=== PATIENT | female | born 1990 | race Caucasian/White ===

== ENCOUNTER 2017-10-23 22:16 | Observation (INO) ==
[2017-10-24] MEDS ORDERED: *HR* Promethazine 25 MG/ML VIAL IVP PRN (00:06)
[2017-10-24] MEDS ORDERED: *HR* LORazepam 2 MG/ML VIAL IVP PRN (00:09)
[2017-10-24] MEDS ORDERED: GI Cocktail 40 ML EACH PO ONE (00:10)
--- NOTE | 2017-10-24 00:20 | Internal Med History&Physical ---
Date of Encounter: 10/23/17 Time of Encounter: 23:58 Internal Medicine - H&P: HPI Chief complaint: vomiting Admitted From: Home Plans for Post Hospital Care: Home History of present illness: Tere Zimmer is a 27 year old woman with a history of alcoholism who presented to [facility] with the complaint of nausea and vomiting for about 3 days. She reported dark brown emesis which later became blood-streaked today. She reported vomiting "all day" today and as such that she has not been able to hold down anything. She started to feel weak and dizzy with standing such that she could pass out. She denied chest pain but felt like her heart was just beating hard and fast. She denied any ill exposures, foodborne illness concerns , recent antibiotic or travel. She has been having epigastric aching and burning pain that will radiate up to her throat. She denies any back or flank pain. She denies any episodes like this before. She has not been having diarrhea, constipation or bloody or black stools. She states she does drink about one fifth (750ml) of vodka a day for the last 2 years and she has not been able to drink any alcohol today due to the vomiting but she had been drinking yesterday. In the ER she was notably tachycardic and found hypokalemic. Potassium supplementation was started and IV PPI in addition to fluid resuscitation and transferred here for further care. At this time she is notably calm and has no complaints, wishing to have ice chips. Past Med Surg Social Fam HX - Past Medical History Medical history: other (Alcoholism) Psychiatric history: no psych history, depression (on venlafaxine) - Past Surgical History Surgical History: no surgical history - Social History Smoking Status: Never smoker Smokeless Tobacco Status: No Alcohol use: heavy, recent Drug use: none Internal Medicine - H&P: Meds Venlafaxine [Effexor] 25 mg PO DAILY 03/07/16 [History] 3 Allergy/AdvReac Type Severity Reaction Status Date / Time azithromycin [From Zithromax] AdvReac Swelling Verified 10/23/17 19:25 of Lip/Tongue/Throat Penicillins AdvReac Swelling Verified 10/23/17 19:25 of Lip/Tongue/Throat All Systems PM: A 10-system review of systems was performed and is negative for pertinent findings except as documented above in the HPI. - Constitutional Exam: Vitals: Reviewed General: Well-developed and in no acute distress lying comfortably in bed Skin: Warm and supple HEENT: Moist mucous membranes. No conjunctivae pallor. Neck: No lymphadenopathy. No JVD. No carotid bruits. No palpable thyroid. Chest: Normal thoracic expansion. Normal breath sounds. Clear to auscultation. Heart: Normal S1 & S2; rhythmic. No rubs or murmurs. Abdomen: Non-distended, soft and minimally to palpation in the epigastrium. No peritoneal reaction. Liver is normal in size. Spleen is not palpable. Extremities: No clubbing, cyanosis or edema. No calf tenderness. Normal distal pulses. Neurological: Awake, alert and oriented to person, place and time. No focal deficits. Psych: Affect appropriate. - Assessment and plan (1) UGIB (upper gastrointestinal bleed) Current Visit: Yes Status: Acute Assessment and plan: likely secondary to Yudi-rosario tear from incessant vomiting. Thus far no recurrences. May also have a component of erosive gastritis from alcohol. Will continue PPI and monitor. So far Hgb stable. If there are recurrences, she may benefit from GI evaluation. For now she remains stable. (2) Nausea & vomiting Current Visit: Yes Status: Acute Assessment and plan: Not associated with diarrhea and not suggestive of a gastroenteritis. May be related to alcohol use and going into withdrawal. -Will place on aspiration precautions and administer anti-emetics prn. -Clear liquid diet for now to advance as tolerated. Qualifiers: Vomiting type: cyclical vomiting Vomiting Intractability: intractable Qualified Code(s): G43.A1 - Cyclical vomiting, intractable (3) Alcohol withdrawal Current Visit: Yes Status: Acute Assessment and plan: Patient admits to withdrawal episodes in the past and currently feels shaky. CIWA protocol. Benzos prn. Banana bag received. Will start PO vitamins/mineral tomorrow if tolerated. Clear liquid diet. Seizure/fall/aspiration precautions. Qualifiers: Complication of substance-induced condition: uncomplicated Qualified Code(s ): F10.230 - Alcohol dependence with withdrawal, uncomplicated (4) Hypokalemia Current Visit: Yes Status: Acute Assessment and plan: Due to alcoholism. Will supplement accordingly and give Mg as well (5) Hypochloremic alkalosis Current Visit: Yes Status: Acute Assessment and plan: likely due to upper GI losses. Will recheck with IVF (6) Leukocytosis Current Visit: Yes Status: Acute Assessment and plan: likely secondary to hemoconcentration noting the high Hgb as well from fluid losses. Currently no signs of lee infection. Will recheck with fluid resuscitation. Qualifiers: Leukocytosis type: unspecified Qualified Code(s): D72.829 - Elevated white blood cell count, unspecified (7) Abnormal LFTs Current Visit: Yes Status: Acute Assessment and plan: Seen to have AST>ALT ratio typical of alcoholic liver disease. Should be improve with alcohol cessation. Give her vices, will check viral hepatitis profile as well. (8) Depression Current Visit: Yes Status: Chronic Assessment and plan: Will continue daily venlafaxine Qualifiers: Depression Type: unspecified Qualified Code(s): F32.9 - Major depressive disorder, single episode, unspecified (9) DVT prophylaxis Current Visit: Yes Status: Acute Assessment and plan: SubQ heparin indicated. - Time Spent With Patient Total time spent is greater than 50% in coordination of care (as documented) at patient's floor/unit and/or counseling patient: Greater than 35 minutes
[2017-10-24] MEDS: D5% in Lactated Ringers 1,000 ML IVC SCH ×2 (02:45→10:29)
[2017-10-24] MEDS: Pantoprazole 40 MG VIAL IVP SCH ×2 (05:20→17:17)
[2017-10-24 05:33] LABS: Basophils # 0.1 K/mcL (0.0-0.2); Basophils % 0.7 %; Eosinophils % 0.2 %; Hemoglobin 12.1 g/dL (11.5-15.4); Immature Granulocytes % 0.6 % (0-4); Lymphocytes # 2.5 K/mcL (0.6-4.6); Lymphocytes % 22.3 %; Mean Corpuscular HGB Conc 33.6 g/dL (31.6-35.5); Mean Corpuscular Hemoglobin 32.1 pg (28.0-33.3); Mean Corpuscular Volume 95.5 fL (83.0-100.0); Mean Platelet Volume 9.4 fL (9.4-12.4); Monocytes # 1.2 K/mcL (0.0-1.3); Monocytes % 11.2 %; Neutrophils # 7.1 K/mcL (1.6-8.9); Platelet Count 254 K/mcL (140-400); Red Blood Count 3.77 M/mcL (3.82-4.97); Red Cell Distribution Width 13.8 % (11.5-14.5)
[2017-10-24 05:54] LABS: Alanine Aminotransferase 99 Units/L (7-52); Albumin 3.8 g/dL (3.5-5.7); Albumin/Globulin Ratio 1.8 (1.1-2.2); Alkaline Phosphatase 86 Units/L (34-104); Aspartate Amino Transferase 160 Units/L (13-39); BUN/Creatinine Ratio 9 (6-26); Bilirubin,Direct 0.3 mg/dL (0.0-0.2); Bilirubin,Indirect 0.6 mg/dL (0.0-1.2); Bilirubin,Total 0.9 mg/dL (0.3-1.0); Blood Urea Nitrogen 7 mg/dL (6-20); Calcium 8.6 mg/dL (8.6-10.3); Carbon Dioxide 27 mEq/L (23-29); Chloride 103 mEq/L (98-107); Globulin 2.1 g/dL (2.4-3.5); Glucose 137 mg/dL (70-105); Magnesium 2.3 mg/dL (1.6-2.6); Osmolality,Calculated 290 (280-300); Phosphorous 2.4 mg/dL (2.7-4.5); Potassium 3.3 mEq/L (3.5-5.1); Sodium 140 mEq/L (136-145); Total Protein 5.9 g/dL (6.4-8.9); eGFR For Non-African Americans > 60 (> 60)
[2017-10-24] MEDS: *HR* Heparin 5,000 UNIT/ML VIAL SQ SCH ×3 (06:12→21:36)
[2017-10-24 06:58] LABS: Hepatitis B Surface Antigen Nonreactive (Nonreactive)
[2017-10-24] MEDS: Folic Acid 1 MG TABLET PO SCH (08:35)
[2017-10-24] MEDS: Vitamin B Complex/Vit C/Vit E 1 EACH TABLET PO SCH (08:36)
[2017-10-24] MEDS: Thiamine (B-1) 100 MG TABLET PO SCH (08:36)
[2017-10-24] MEDS: Potassium Chloride Elixir 20 MEQ/15 ML UDC PO SCH ×2 (08:36→21:36)
--- NOTE | 2017-10-24 09:19 | Internal Med Progress Note ---
Hospitalist Progress Note - Encounter Date of Encounter: 10/24/17 Time of Encounter: 11:00 - Subjective Interval History: Patient denies any hematemesis and is tearful this morning on exam but denies SI - Exam Vitals: Temp Pulse Resp BP Pulse Ox 98.2 F 83 18 129/76 96 10/24/17 07:53 10/24/17 07:53 10/24/17 07:53 10/24/17 07:53 10/24/17 07:53 Exam: Gen.: Nonacute distress, alert and oriented 3 ENT: Mucosal membranes moist Respiratory: Lungs are clear to auscultation bilaterally without any wheezing rhonchi or rales Cardiovascular: Normal S1 and S2 regular rate rhythm no murmurs rubs or gallops Abdomen: Soft, nontender and nondistended with positive bowel sounds Extremities: No lower extremity edema Skin: Normal color Psychiatry: Patient admits to depression but denies SI - Assessment and Plan (1) UGIB (upper gastrointestinal bleed) Current Visit: Yes Status: Acute Assessment and Plan: Patient denies any hematemesis Discussed with GI; continue to monitor EGD plan for 10/26/17 (2) Hypokalemia Current Visit: Yes Status: Acute Assessment and Plan: Replacements as needed (3) Nausea & vomiting Current Visit: Yes Status: Acute Assessment and Plan: Continue anti-emetics prn. (4) Alcohol withdrawal Current Visit: Yes Status: Acute Assessment and Plan: CIWA protocol (5) Abnormal LFTs Current Visit: Yes Status: Acute Assessment and Plan: Seen to have AST>ALT ratio typical of alcoholic liver disease. Continue to monitor; hepatitis panel pending (6) Depression Current Visit: Yes Status: Chronic Assessment and Plan: Will continue daily venlafaxine (7) DVT prophylaxis Current Visit: Yes Status: Acute Assessment and Plan: SubQ heparin indicated. - Time Spent with Patient Total time spent is greater than 50% in coordination of care (as documented) at patient's floor/unit and/or counseling patient: Internal Medicine: Result - Labs CBC & Chem 7: 10/24/17 05:07 10/24/17 05:07 Labs: Short CBC 10/24/17 Range/Units 05:07 WBC 11.0 (4.3-11.1) K/mcL Hgb 12.1 D (11.5-15.4) g/dL Hct 36.0 (35.3-44.9) % Plt Count 254 (140-400) K/mcL Neutrophils # 7.1 (1.6-8.9) K/mcL BMP 10/24/17 05:07 Sodium 140 Potassium 3.3 L Chloride 103 Carbon Dioxide 27 BUN 7 Creatinine 0.76 Glucose 137 H Calcium 8.6 Liver Function 10/24/17 Range/Units 05:07 Total Bilirubin 0.9 (0.3-1.0) mg/dL Direct Bilirubin 0.3 H (0.0-0.2) mg/dL AST 160 H (13-39) Units/L ALT 99 H (7-52) Units/L Alkaline Phosphatase 86 (34-104) Units/L Albumin 3.8 (3.5-5.7) g/dL Consult Discharge Plan - Plan Referrals: Petr Smallwood MD [Primary Care Provider] - (3) Nausea & vomiting Qualifiers: Vomiting type: cyclical vomiting Vomiting Intractability: intractable Qualified Code(s): G43.A1 - Cyclical vomiting, intractable (4) Alcohol withdrawal Qualifiers: Complication of substance-induced condition: uncomplicated Qualified Code(s) : F10.230 - Alcohol dependence with withdrawal, uncomplicated (6) Depression Qualifiers: Depression Type: unspecified Qualified Code(s): F32.9 - Major depressive disorder, single episode, unspecified
[2017-10-24] MEDS ORDERED: Melatonin 3 MG TABLET PO PRN (15:35)
[2017-10-25] MEDS: *HR* Heparin 5,000 UNIT/ML VIAL SQ SCH ×3 (05:41→21:55)
[2017-10-25] MEDS: Pantoprazole 40 MG VIAL IVP SCH ×2 (05:41→17:44)
[2017-10-25] MEDS: Folic Acid 1 MG TABLET PO SCH (08:31)
[2017-10-25] MEDS: Vitamin B Complex/Vit C/Vit E 1 EACH TABLET PO SCH (08:31)
[2017-10-25] MEDS: Thiamine (B-1) 100 MG TABLET PO SCH (08:31)
--- NOTE | 2017-10-25 14:26 | Internal Med Progress Note ---
Hospitalist Progress Note - Encounter Date of Encounter: 10/25/17 Time of Encounter: 11:00 - Subjective Interval History: She presented with hematemesis and alcohol withdrawal. Patient scheduled for EGD by GI on 10/26/17 - Exam Vitals: Temp Pulse Resp BP Pulse Ox 98.5 F 94 16 117/83 97 10/25/17 14:20 10/25/17 14:20 10/25/17 14:20 10/25/17 14:20 10/25/17 14:20 Exam: Gen.: Nonacute distress, alert and oriented 3 ENT: Mucosal membranes moist Respiratory: Lungs are clear to auscultation bilaterally without any wheezing rhonchi or rales Cardiovascular: Normal S1 and S2 regular rate rhythm no murmurs rubs or gallops Abdomen: Soft, nontender and nondistended with positive bowel sounds Extremities: No lower extremity edema Skin: Normal color Psychiatry: Patient admits to depression but denies SI - Assessment and Plan (1) UGIB (upper gastrointestinal bleed) Current Visit: Yes Status: Acute Assessment and Plan: Patient denies any hematemesis Discussed with GI; continue to monitor EGD plan for 10/26/17 (2) Hypokalemia Current Visit: Yes Status: Acute Assessment and Plan: Replacements as needed (3) Nausea & vomiting Current Visit: Yes Status: Acute Assessment and Plan: Continue anti-emetics prn. (4) Alcohol withdrawal Current Visit: Yes Status: Acute Assessment and Plan: CIWA protocol (5) Abnormal LFTs Current Visit: Yes Status: Acute Assessment and Plan: Seen to have AST>ALT ratio typical of alcoholic liver disease. Continue to monitor; hepatitis panel pending (6) Depression Current Visit: Yes Status: Chronic Assessment and Plan: Will continue daily venlafaxine (7) DVT prophylaxis Current Visit: Yes Status: Acute Assessment and Plan: SubQ heparin indicated. - Time Spent with Patient Total time spent is greater than 50% in coordination of care (as documented) at patient's floor/unit and/or counseling patient: Internal Medicine: Result - Labs CBC & Chem 7: 10/25/17 14:34 10/25/17 14:34 Consult Discharge Plan - Plan Referrals: Petr Smallwood MD [Primary Care Provider] - (3) Nausea & vomiting Qualifiers: Vomiting type: cyclical vomiting Vomiting Intractability: intractable Qualified Code(s): G43.A1 - Cyclical vomiting, intractable (4) Alcohol withdrawal Qualifiers: Complication of substance-induced condition: uncomplicated Qualified Code(s) : F10.230 - Alcohol dependence with withdrawal, uncomplicated (6) Depression Qualifiers: Depression Type: unspecified Qualified Code(s): F32.9 - Major depressive disorder, single episode, unspecified
[2017-10-25 14:59] LABS: Basophils # 0.1 K/mcL (0.0-0.2); Basophils % 1.2 %; Eosinophils # 0.1 K/mcL (0.0-0.6); Eosinophils % 1.5 %; Hematocrit 37.8 % (35.3-44.9); Hemoglobin 12.7 g/dL (11.5-15.4); Immature Granulocytes % 1.1 % (0-4); Lymphocytes # 1.8 K/mcL (0.6-4.6); Lymphocytes % 21.9 %; Mean Corpuscular HGB Conc 33.6 g/dL (31.6-35.5); Mean Corpuscular Hemoglobin 32.5 pg (28.0-33.3); Mean Corpuscular Volume 96.7 fL (83.0-100.0); Mean Platelet Volume 9.6 fL (9.4-12.4); Monocytes # 0.8 K/mcL (0.0-1.3); Monocytes % 8.9 %; Neutrophils # 5.5 K/mcL (1.6-8.9); Platelet Count 226 K/mcL (140-400); Red Blood Count 3.91 M/mcL (3.82-4.97); Red Cell Distribution Width 13.2 % (11.5-14.5); Segmented Neutrophils % 65.4 %
[2017-10-25 15:07] LABS: BUN/Creatinine Ratio 7 (6-26); Blood Urea Nitrogen 5 mg/dL (6-20); Calcium 9.4 mg/dL (8.6-10.3); Carbon Dioxide 26 mEq/L (23-29); Chloride 101 mEq/L (98-107); Glucose 107 mg/dL (70-105); Osmolality,Calculated 282 (280-300); Potassium 3.6 mEq/L (3.5-5.1); Sodium 137 mEq/L (136-145); eGFR For Non-African Americans > 60 (> 60)
[2017-10-26] MEDS: *HR* Heparin 5,000 UNIT/ML VIAL SQ SCH ×2 (06:00→14:17)
[2017-10-26] MEDS: Pantoprazole 40 MG VIAL IVP SCH (06:00)
[2017-10-26] MEDS: Thiamine (B-1) 100 MG TABLET PO SCH (09:12)
[2017-10-26] MEDS: Vitamin B Complex/Vit C/Vit E 1 EACH TABLET PO SCH (09:12)
[2017-10-26] MEDS: Folic Acid 1 MG TABLET PO SCH (09:12)
--- NOTE | 2017-10-26 11:28 | Gastroenterology Consult Note ---
<RiveraGeovani keller Reilly - Last Filed: 10/26/17 11:25> Date of Encounter: 10/26/17 Time of Encounter: 10:20 - Assessment and plan (1) UGIB (upper gastrointestinal bleed) Current Visit: Yes Status: Acute Assessment and plan: No further hematemesis per patient report Plan for EGD today to r/o esophagitis , gastritis, duodenitis, PUD, MW tear, or AVM. Keep NPO for scope. (2) Abnormal LFTs Current Visit: Yes Status: Acute Assessment and plan: Likely secondary to alcohol abuse. Complete liver workup. - Time Spent With Patient Total time spent is greater than 50% in coordination of care (as documented) at patient's floor/unit and/or counseling patient: GI History of Present Illness - Data of Consult Patient: new to practice Consult date: 10/26/17 Requesting Physician: Mello Mendiola - Consult Narrative Reason for consult: Bloody emesis, abdominal pain History of present illness: Ms. Zimmer is a 27 year old female with PMHx of alcohol abuse who presented to [facility] with the complaint of nausea and vomiting for about 3 days. She reported dark brown emesis which later became blood-streaked. She also reports coffee-ground emesis. She reports vomiting "all day" the day of admission and not being able to keep anything down. She has been having epigastric aching and burning pain that will radiate up to her throat. She states she does drink about one fifth (750ml) of vodka a day for the last 2 years. She denies fever, chills, chest pain, back pain, diarrhea, constipation, melena, or hematochezia. Procedures: None NSAIDs: None Anticoagulation: None Past Med Surg Social Fam HX - Past Medical History Medical history: other Psychiatric history: no psych history, depression - Past Surgical History Surgical History: no surgical history - Social History Smoking Status: Never smoker Smokeless Tobacco Status: No Alcohol use: heavy, recent Drug use: none - Family History Mother Name: Layla Castillo Age: 54 Living Status: Still Living Hx Family Cancer: Yes (pancreatic) Hx Family Endocrine Disorder: Yes (hyperthyroidism) - Gastrointestinal Gastrointestinal: Present: as per HPI - Constitutional Constitutional: as per HPI - EENT Eyes: as per HPI Ears: Present: as per HPI Nose, mouth and throat: Present: as per HPI - Cardiovascular Cardiovascular ROS: Present: as per HPI - Respiratory Respiratory IM: Present: as per HPI - Genitourinary Genitourinary: Absent: change in color, Urinary frequency - Neurological ROS Neurological GI: Present: as per HPI - Hematologic/Lymphatic Hematologic/Lymphatic pediatric: Present: as per HPI - Musculoskeletal Musculoskeletal ROS GI: Present: as per HPI - Integumentary Integumentary GI: Present: as per HPI - Psychiatric ROS Psychiatric GI: Present: as per HPI - Endocrine Endocrine IM: Present: as per HPI - Constitutional Vitals: Temp Pulse Resp BP Pulse Ox 98.9 F 91 16 119/83 96 10/26/17 10:39 10/26/17 10:39 10/26/17 10:39 10/26/17 10:39 10/26/17 10:39 General appearance: Present: cooperative, A&O X 3, no acute distress, answers questions appropriately - Head Head exam: Present: atraumatic, normocephalic - Eye Eye exam: Present: normal appearance, sclera anicteric - ENT ENT exam: Present: mucous membranes dry - Neck Neck exam general surgery: Present: normal inspection, trachea midline - Respiratory Respiratory exam: Present: CTAB. Absent: rales, rhonchi, wheezes - Cardiovascular Cardiovascular exam: Present: RRR, +S1, +S2 - GI/Abdominal GI/Abdominal exam: Present: soft, no peritoneal signs. Absent: distended, firm , guarding, tenderness - Rectal Rectal exam: Present: deferred - Extremities Exam Extremities exam: Present: warm - Neurological Exam Neurological exam: Present: no focal deficits - Psychiatric Psychiatric exam: Present: normal affect, normal mood - Skin Skin exam: Present: dry, intact, normal color, warm Results - Labs CBC & Chem 7: 10/25/17 14:34 10/25/17 14:34 Labs: Last Result Calcium 9.4 mg/dL (8.6-10.3) 10/25/17 14:34 Entire Visit Hgb 12.7 g/dL (11.5-15.4) 10/25/17 14:34 Hct 37.8 % (35.3-44.9) 10/25/17 14:34 Total Bilirubin 0.9 mg/dL (0.3-1.0) 10/24/17 05:07 AST 160 Units/L (13-39) H 10/24/17 05:07 ALT 99 Units/L (7-52) H 10/24/17 05:07 Consult Discharge Plan - Plan Referrals: Petr Smallwood MD [Primary Care Provider] - <Simone Bentley - Last Filed: 10/26/17 14:05> Date of Encounter: 10/26/17 Time of Encounter: 13:00 - Time Spent With Patient Total time spent is greater than 50% in coordination of care (as documented) at patient's floor/unit and/or counseling patient: GI History of Present Illness - Data of Consult Requesting Physician: Mello Mendiola - Consult Narrative History of present illness: Ms. Zimmer is a 27 year old female - Constitutional Vitals: Temp Pulse Resp BP Pulse Ox 98.9 F 94 16 140/97 97 10/26/17 10:39 10/26/17 12:41 10/26/17 12:41 10/26/17 12:41 10/26/17 12:41 Results - Labs CBC & Chem 7: 10/25/17 14:34 10/25/17 14:34 Labs: Last Result Calcium 9.4 mg/dL (8.6-10.3) 10/25/17 14:34 Entire Visit Hgb 12.7 g/dL (11.5-15.4) 10/25/17 14:34 Hct 37.8 % (35.3-44.9) 10/25/17 14:34 Total Bilirubin 0.9 mg/dL (0.3-1.0) 10/24/17 05:07 AST 160 Units/L (13-39) H 10/24/17 05:07 ALT 99 Units/L (7-52) H 10/24/17 05:07 - Attending Attestation I have personally performed a face to face evaluation on this patient. I have reviewed and agree with the care plan. History and Exam by me shows: Pt seen. SHe denies any active issues. Had hematemesis before none now. O/E: abdomen is benign. Assessment: Patient alcoholic with hematemesis rule out esophagitis gastritis peptic ulcer disease currently hemoglobin is stable. Recommendation: Follow H&H, continue PPI, EGD
--- NOTE | 2017-10-26 11:59 | Anesthesia Evaluation PreOp ---
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 HX Other Medical History: GERD, Other (depression) Anesthesia History: Past Anesthesia (no prior surgery) Test: Negative (10/24/2017) Alcohol Use: heavy, recent (stopped 10/23/2017) Drug use: none Medications and Allergies Venlafaxine XR (24 HR) [Effexor XR] 37.5 mg PO DAILY 10/24/17 [History] 3 Allergy/AdvReac Type Severity Reaction Status Date / Time azithromycin [From Zithromax] Allergy See Verified 10/24/17 11:50 Comments Penicillins Allergy See Verified 10/24/17 11:50 Comments - Meds/Allergy Pre-op Review Medications Reviewed: Yes Allergies Reviewed: Yes Beta Blockers on Current Med List: No Anesthesia Results - Labs 10/25/17 14:34 10/25/17 14:34 Laboratory Tests 10/24/17 05:07 Serum , Qual Negative Anesthesia Exam Vital Signs/O2 Sat, Most Current Temp Pulse Resp BP Pulse Ox 98.9 F 91 16 119/83 96 10/26/17 10:39 10/26/17 10:39 10/26/17 10:39 10/26/17 10:39 10/26/17 10:39 Height: 5'2''/1.57m Weight: 154 lbs/70 kg NPO (# of Hours): 8 Pain Scale: 0 Pain Scale Used: Numeric (1 - 10) - HEENT Pupil (Motor): EOMI Mallampati: IV Teeth: Normal Oral Opening: Greater than 3 - MEMBERSHIP CORRESPONDENT LOC: Oriented [employer]BERSHIP CORRESPONDENT Motor: Normal RUE, Normal LUE, Normal RLE, Normal LLE, Normal Face [employer]BERSHIP CORRESPONDENT Sensory: Normal: RUE, LUE, RLE, LLE, Face - Cardiac Rhythm: Regular Murmur: None - Pulmonary Breath Sounds: bilateral Clear Respiratory Effort: Symmetrical Anesthesia Assess/Plan ASA Score: 3 Modified Natalia Scale for Level of Consciousness: Cooperative, oriented, and tranquil Anesthetic Plan: MAC Monitoring Plan: Standard Monitors
[2017-10-26] MEDS ORDERED: *HR* Propofol 200 MG/20 ML VIAL IVP ONE (12:19)
[2017-10-26] MEDS ORDERED: Lidocaine -MPF 2% 2 ML VIAL ONE (12:19)
[2017-10-26 14:42] LABS: Albumin 4.4 g/dL (3.5-5.7); Albumin/Globulin Ratio 1.7 (1.1-2.2); Bilirubin,Direct 0.3 mg/dL (0.0-0.2); Bilirubin,Indirect 0.7 mg/dL (0.0-1.2); Globulin 2.6 g/dL (2.4-3.5)
[2017-10-26] MEDS ORDERED: Acetaminophen 325 MG TABLET PO PRN (14:49)
[2017-10-26 15:07] VITALS: BP 135/94
--- NOTE | 2017-10-26 17:19 | Discharge Summary ---
- NOTES TO OUTPATIENT PROVIDER Notes to Outpatient Provider: liver US; ELEVATED LFTS Orders not resulted at time of discharge: Pending orders 10/24/17 05:07 Hepatitis Prof.(Routine A,B,C) AM 0400 10/24/17 06:14 Stool guiac [Occult Blood,Stool] [BF] Routine 10/26/17 12:29 AFP Tumor Marker Non- Routine RUT IgG DAVIN rflx IFA Routine Vgufi-1-Sccugyisehd Routine Ceruloplasmin Routine F-Actin IgG Reflex Sm Muscle Routine Ferritin Routine Hepatic Panel Routine MPO/PR3 (ANCA) Antibodies Routine Mitochondrial M2 Antibody, IgG Routine 10/26/17 13:36 Surgical Pathology [PTH] Routine 10/27/17 13:37 US liver [US] Routine Date of Encounter: 10/26/17 Time of Encounter: 17:17 - Discharge Diagnosis (1) Alcohol withdrawal Priority: Primary Status: Acute Qualifiers: Complication of substance-induced condition: uncomplicated Qualified Code(s ): F10.230 - Alcohol dependence with withdrawal, uncomplicated (2) Hypokalemia Priority: Secondary Status: Acute (3) Nausea & vomiting Priority: Secondary Status: Acute Qualifiers: Vomiting type: cyclical vomiting Vomiting Intractability: intractable Qualified Code(s): G43.A1 - Cyclical vomiting, intractable (4) Depression Priority: Secondary Status: Chronic Qualifiers: Depression Type: unspecified Qualified Code(s): F32.9 - Major depressive disorder, single episode, unspecified (5) DVT prophylaxis Priority: Secondary Status: Acute (6) Abnormal LFTs Priority: Secondary Status: Acute (7) UGIB (upper gastrointestinal bleed) Priority: Secondary Status: Acute Hospital course: Ms. Zimmer is a 27 year old female with history of alcohol abuse, here for hematemesis. Upper endoscopy revealed Nettles's esophagus. LEFT AMA - Time Spent with Patient Total time spent providing and/or coordinating discharge services: - Discharge Medications Home Medications: Venlafaxine XR (24 HR) [Effexor Xr] 37.5 mg PO DAILY 10/24/17 [History] Allergies/Adverse Reactions: 3 Allergy/AdvReac Type Severity Reaction Status Date / Time azithromycin [From Zithromax] Allergy See Verified 10/24/17 11:50 Comments Penicillins Allergy See Verified 10/24/17 11:50 Comments Date of admission: 10/23/17 23:37 Primary care physician: Petr Smallwood MD Consults: 10/24/17 16:13 Consult to Gastroenterology [CONS] Routine Consulting Provider: Gastroenterology [facility] Reason for Consult: abd pain, bloody emesis Dr. Mendiola already spoke with Dr. Bentley Call Completed: Yes Discharging clinician: Bharat Purdy Anticipated date of discharge: 10/26/17 - Constitutional Vitals: Temp Pulse Resp BP Pulse Ox 98.7 F 93 16 135/94 97 10/26/17 15:05 10/26/17 15:05 10/26/17 15:05 10/26/17 15:05 10/26/17 15:05 Exam: . - Head Head exam: Present: atraumatic, normocephalic - Eye Eye exam: Present: PERRL, conjuntiva pink, sclera anicteric Pupils: Present: PERRL - Neck Neck exam general surgery: Present: supple, trachea midline. Absent: lymphadenopathy - Respiratory Respiratory exam: Present: CTAB. Absent: accessory muscle use, rales, rhonchi, wheezes - Cardiovascular Cardiovascular exam: Present: RRR, +S1, +S2. Absent: diastolic murmur, gallop, rubs, systolic murmur - GI/Abdominal GI/Abdominal exam: Present: normal bowel sounds, soft, no peritoneal signs. Absent: distended, tenderness - Extremities Exam Extremities exam: Present: warm, radial pulses palpable and symmetrical. Absent : calf tenderness, cyanotic, pedal edema - Neurological Exam Neurological exam: Present: CN II-XII intact, oriented X3, no focal deficits. Absent: pronater drift, facial droop, speech deficit - Skin Skin exam: Present: dry, intact - Patient Status Disposition: Left Against Medical Advice Condition: Fair Functional capacity at discharge: independent ambulation Overall status at discharge: patient is progressing back to baseline - Ambulatory Orders Ambulatory Orders: US liver [US] Time Frame: 2 Days, Facility: [facility], Location: Radiology - Discharge Instructions Follow Up With: Petr Smallwood MD [Primary Care Provider] -
--- NOTE | 2017-10-26 17:21 | Event Note ---
Date of Encounter: 10/26/17 Time of Encounter: 17:20 Here for alcohol abuse, and hematemesis. Upper endoscopy revealing Nettles's esophagus. Elevated LFTs offered further evaluation but patient declined. Offered to stay overnight for liver ultrasound and further monitoring status post endoscopy this afternoon. Patient declined and left AGAINST MEDICAL ADVICE. Discussed with the patient risks of leaving AGAINST MEDICAL ADVICE status post endoscopy including worsening of condition, aspiration due to being unable to protect airway status post endoscopy, and/or . Patient verbalizes understanding and continued to leave AGAINST MEDICAL ADVICE. Instructed patient to return to the ED should she began experiencing any signs or symptoms of bleeding, weakness, fatigue, mental status change, decreased level of consciousness. Patient's mother at bedside and agrees to bring patient back should any of this occur. She is being discharged with a follow- up appointment for liver ultrasound as an outpatient in 2 weeks. This information was relayed to gastroenterology.
[2017-10-27 02:58] LABS: Hepatitis A Antibody IgM Nonreactive (Nonreactive); Hepatitis B Core IgM Nonreactive (Nonreactive); Hepatitis C Virus Antibody Nonreactive (Nonreactive)
[2017-10-29 13:43] LABS: AFP Tumor Marker Non-Pregnant 6 ng/mL (0-9)
[2017-10-29 13:54] LABS: ANA IgG by ELISA NONE DETECTED (None Detected); F-Actin (sm muscle) Ab IgG 6 Units (0-19)
[2017-10-31 12:04] LABS: Myeloperoxidase Ab 0 AU/mL (0-19); Serine Protease-3 Antibody 0 AU/mL (0-19)
== END 2017-10-26 17:16 | disposition left against medical advice (07) ==
LOC: 3BNU → SUATTDRO 23:37
PROVIDERS: ADMIT Internal Medicine; ATTEND Hospitalist
PROC: ENDOEBX (2017-10-26 14:00)